=== PATIENT | female | born 1965 | race Caucasian/White ===

== ENCOUNTER 2019-04-19 10:18 | Inpatient (IN) | payer MEDICAID ==
[~2019-04-19] VITALS: Ht 162.6 cm; Wt 47.7 kg
[2019-04-19 12:50] LABS: BASOPHILS 0.2 % (0-2); EOSINOPHILS 0.1 % (0-7); HEMATOCRIT 41.2 % (36.0-48.0); HEMOGLOBIN 13.4 g/dL (12-16); IMMATURE GRANULOCYTES 0.2 % (0-5); LYMPHOCYTES 6.7 % (15-50); MCH 27.5 pg (26.0-34.0); MCHC 32.5 g/dL (31.0-37.0); MCV 84.4 fL (80.0-100.0); MEAN PLATELET VOLUME 9.2 fL (7.4-10.4); MONOCYTES 4.3 % (2-11); NEUTROPHILS 88.5 % (40-80); PLATELET COUNT 193 10x3/uL (130-400); RBC 4.88 10x6/uL (4.00-5.40); RDW 15.1 % (11.5-14.5); WBC 9.1 10x3/uL (4.8-10.8)
--- NOTE | 2019-04-19 12:54 | NUR ---
PT AWARE SHE IS BEING ADMITTED TO [facility], AWAITING BED ASSIGNMENT. PT AWARE OF NPO STATUS. DENIES NEEDS, CALL LIGHT IN REACH, WILL CONTINUE TO MONITOR.
[2019-04-19 13:02] LABS: APTT 27.2 SECONDS (22.8-39.4); PROTIME 12.7 SECONDS (11.6-15.0)
[2019-04-19 13:06] LABS: ALBUMIN 3.8 g/dL (3.4-5.0); ALKALINE PHOSPHATASE 93 U/L (46-116); ALT (SGPT) 19 U/L (10-68); BILIRUBIN - TOTAL 0.41 mg/dL (0.2-1.3); CALC OSMOLALITY 275 mosm/kg (275-300); CALCIUM 8.2 mg/dL (8.5-10.1); CARBON DIOXIDE 24.6 mmol/L (21.0-32.0); CHLORIDE - SERUM 103 mmol/L (98-107); CREATININE - SERUM 0.8 mg/dL (0.6-1.3); GLUCOSE 104 mg/dL (74-106); POTASSIUM - SERUM 3.9 mmol/L (3.5-5.1); PROTEIN - SERUM 7.2 g/dL (6.4-8.2); SODIUM 139 mmol/L (136-145); UREA NITROGEN 6 mg/dL (7-18); eGFR NON AFRICAN AMERICAN 78 mL/min (90-120)
--- NOTE | 2019-04-19 14:01 | NUR ---
PT OFFERED PRN PAIN MEDICATION AND DECLINED AT THIS TIME.
[2019-04-19 14:19] VITALS: BP 134/80; Ht 162.6 cm; Wt 47.7 kg
--- NOTE | 2019-04-19 14:29 | NUR ---
PATIENT ADMITTED TO ROOM 2228. ADMISSION ASSESSMENT COMPLETED PER PROTOCOL. PLEXI BOOTS PLACED ON PATIENT PER ORDER. WILL OBTAIN CONSENTS FOR PROCEDURE.
--- NOTE | 2019-04-19 15:01 | NUR ---
CONSENTS SIGNED FOR PROCEDURE. PREOP MEDICATIONS GIVEN. ANCEF NOT GIVEN D/T NOT ON FLOOR. STAFF WHO CAME TO PHARMACIST IN CHARGE PATIENT NOTIFIED MED NOT GIVEN.
--- NOTE | 2019-04-19 15:14 | MORECARE ---
CASE MANAGEMENT DISCHARGE SUMMARY PATIENT: ALESHIA SCOTT UNIT: [id number] ADM DATE: 04/19/19 AGE: 54 : 61 SEX: F ROOM/BED: D.2228 AUTHOR: HO BURDICK PHYSICIAN: REFERRING PHYSICIAN: LESLIE MONTE MD DATE OF SERVICE: 04/19/19 Discharge Plan Patient Name: ALESHIA SCOTT [facility] [facility] 1965 Planned Disposition: Home Anticipated Discharge Date: 04/21/19 Discharge Date: Expected LOS: 2 Initial Reviewer: [email or web address] Initial Review Date: 04/19/2019 Generated: 04/19/19 4:13 pm DCPIA - Discharge Planning Initial Assessment Updated by [id number]: Lorna Kim on 04/19/19 3:13 pm * Is the patient Alert and Oriented? Yes * How many steps to enter\exit or inside your home? * PCP No PCP * Pharmacy [facility] * Preadmission Environment Home Alone * ADLs Independent * Equipment Crutch Rolling Walker * List name and contact numbers for known caregivers / representatives who currently or will assist patient after discharge: Juan Boyle - co-worker - [phone] * Verbal permission to speak to the caregivers and representatives has been obtained from the patient. Yes * Community resources currently utilized None * Additional services required to return to the preadmission environment? No * Can the patient safely return to the preadmission environment? Yes * Has this patient been hospitalized within the prior 30 days at any hospital? No Patient Name: ALESHIA SCOTT Page [id number] at 1514 All edits/amendments must be made on the electronic document DICTATION DATE: 04/19/191512 MATERIAL MOVERS: MARIE 04/19/191512 RPT#: [id number] DC DATE: STATUS: ADM IN [facility] [address] [place] [address] END OF REPORT
--- NOTE | 2019-04-19 15:24 | MORECARE ---
CASE MANAGEMENT DISCHARGE SUMMARY PATIENT: ALESHIA SCOTT UNIT: [id number] ADM DATE: 04/19/19 AGE: 54 : 61 SEX: F ROOM/BED: D.2228 AUTHOR: HEAVENLY,DOC PHYSICIAN: REFERRING PHYSICIAN: LESLIE MONTE MD DATE OF SERVICE: 04/19/19 Discharge Plan Patient Name: ALESHIA SCOTT Facility: [facility]:[place] : 1965 Planned Disposition: Home Anticipated Discharge Date: 04/21/19 Discharge Date: Expected LOS: 2 Initial Reviewer: [email or web address] Initial Review Date: 04/19/2019 Generated: 04/19/19 4:24 pm DCP- Discharge Planning Updated by [email or web address]: Lorna Kim on 04/19/19 2:[address] DC PLAN: Return home alone (if able) ANTICIPATED DC NEEDS: Denied dc needs at time of assessment. CM met with patient to complete initial dc planning assessment. CM educated patient on the CM role and verbal consent given by patient to complete assessment. CM verified patient's address, phone number, and emergency contact phone numbers. Patient lives at with. At discharge patient plans to return home alone and feels this is a safe discharge. CM discussed availability of home health, rehab services, and medical equipment. Patient denied known discharge needs at this time. Patient reports Juan will transport her home at time of discharge. Patient with a hip fracture and will have surgery so she may require assistance at discharge. She reports she does not have health insurance at this time. CM called [employer], left a message for Romina requesting patient be screened for medicaid assistance. CM will continue to follow and will assist as needed with dc plans/needs. Lorna Kim RN, [facility] DCPIA - Discharge Planning Initial Assessment Updated by [email or web address]: Lorna Kim on 04/19/19 3:13 pm * Is the patient Alert and Oriented? Yes * How many steps to enter\exit or inside your home? * PCP No PCP * [facility] * Preadmission Environment Home Alone * ADLs Independent * Equipment Crutch Rolling Walker * List name and contact numbers for known caregivers / representatives who currently or will assist patient after discharge: Juan Montana - co-worker - [phone] * Verbal permission to speak to the caregivers and representatives has been obtained from the patient. Yes * Community resources currently utilized None * Additional services required to return to the preadmission environment? No * Can the patient safely return to the preadmission environment? Yes * Has this patient been hospitalized within the prior 30 days at any hospital? No Last DP export: 04/19/19 2:14 p Patient Name: ALESHIA SCOTT Page [id number] at 1524 All edits/amendments must be made on the electronic document DICTATION DATE: 04/19/191523 SUPERVISOR REINFORCED STEEL PLACING: MARIE 04/19/191523 RPT#: [id number] RI DATE: STATUS: ADM IN [facility] [address] [place] [address] END OF REPORT
[2019-04-19 17:35] VITALS: BP 145/84
[2019-04-19 17:47] VITALS: BP 145/84
[2019-04-19 18:05] VITALS: BP 153/98
[2019-04-19 18:12] VITALS: BP 131/79
--- NOTE | 2019-04-19 18:31 | NUR ---
RESTING IN BED. POST OP VITALS REMAIN STABLE. DENIES NEEDS. BED LOW. FALL PRECAUTIONS IN PLACE. CALL FLORES AND PERSONAL ITEMS IN REACH. WILL CONTINUE TO MONITOR.
--- NOTE | 2019-04-19 20:00 | NUR ---
ASSESSMENT PER FLOWSHEET. DRSG TO RT FEMUR INCISION C/D/I. IV PATENT RT ARM OF NS AT 125CC'S/HR. KASHIF MAT ON YELLOW SAFETY MEASURES IN USE.
[2019-04-19 20:43] VITALS: BP 118/75
--- NOTE | 2019-04-19 21:00 | NUR ---
UP TO BR WITH HELP AND USE OF WALKER VOIDS WELL.
--- NOTE | 2019-04-19 22:00 | NUR ---
MEDS PER MAR.
[2019-04-20 01:15] VITALS: BP 120/83
--- NOTE | 2019-04-20 01:25 | NUR ---
UP TO BR WITH HELP AND USE OF WALKER VOIDS WELL. ASSISTED BACK TO BED.REQUESTING PAIN MED. NORCO 7.5MG TAB ONE PO GIVEN FOR PAIN CONTROL.
--- NOTE | 2019-04-20 03:10 | NUR ---
EYES CLOSED RESPIRATIONS WITH EASE AND UNLABORED.
[2019-04-20 05:02] VITALS: BP 108/67
[2019-04-20 06:00] LABS: BASOPHILS 0.2 % (0-2); EOSINOPHILS 0 % (0-7); HEMATOCRIT 34.9 % (36.0-48.0); HEMOGLOBIN 11.1 g/dL (12-16); IMMATURE GRANULOCYTES 0.2 % (0-5); LYMPHOCYTES 30.4 % (15-50); MCH 26.9 pg (26.0-34.0); MCHC 31.8 g/dL (31.0-37.0); MCV 84.5 fL (80.0-100.0); MEAN PLATELET VOLUME 9.6 fL (7.4-10.4); MONOCYTES 8.1 % (2-11); NEUTROPHILS 61.1 % (40-80); PLATELET COUNT 186 10x3/uL (130-400); RBC 4.13 10x6/uL (4.00-5.40); RDW 15.5 % (11.5-14.5)
[2019-04-20 06:40] LABS: ALKALINE PHOSPHATASE 69 U/L (46-116); BILIRUBIN - TOTAL 0.29 mg/dL (0.2-1.3); CALCIUM 7.1 mg/dL (8.5-10.1); CARBON DIOXIDE 25.5 mmol/L (21.0-32.0); CHLORIDE - SERUM 110 mmol/L (98-107); CREATININE - SERUM 0.7 mg/dL (0.6-1.3); GLUCOSE 95 mg/dL (74-106); MAGNESIUM - SERUM 2.1 mg/dL (1.8-2.4); PHOSPHOROUS 3.5 mg/dL (2.5-4.9); POTASSIUM - SERUM 4.1 mmol/L (3.5-5.1); PROTEIN - SERUM 5.4 g/dL (6.4-8.2); SODIUM 143 mmol/L (136-145); eGFR NON AFRICAN AMERICAN > 90 mL/min (90-120)
[2019-04-20 06:41] LABS: ALBUMIN 2.7 g/dL (3.4-5.0); ALT (SGPT) 13 U/L (10-68); CALC OSMOLALITY 281 mosm/kg (275-300); UREA NITROGEN 4 mg/dL (7-18)
[2019-04-20 06:48] LABS: WBC 4.7 10x3/uL (4.8-10.8)
[2019-04-20 08:17] VITALS: BP 126/73
[2019-04-20 11:33] VITALS: BP 130/78
--- NOTE | 2019-04-20 12:42 | NUR ---
PT RESTING IN BED. NO SIGNS OF DISTRESS. IV TO RIGHT FORARM PATENT NO REDNESS OR TENDERNESS. ON 2L NC. DENIES ANY FURHTER NEED AT THIS TIME. CALL LIGHT IN REACH. BED LOW POSITION. NO FAMILY AT BEDSIDE AT THIS TIME.
--- NOTE | 2019-04-20 15:10 | NUR ---
LYING IN BED,WITHOUT DISTRESS.CALL LIGHT IN REACH
[2019-04-20 16:01] VITALS: BP 125/80
--- NOTE | 2019-04-20 20:00 | NUR ---
ASSESSMENT PER FLOWSHEET. DRSG TO RT HIP C/D/I. SCD'S ON. SR UP X2 CALL LIGHT WITHIN REACH.IV PATENT RT FOREARM OF NS AT 50CC'S/HR. PT INDEPENDENT WITH WALKER GOES TO BR AND VOIDS WELL BSC WITHOUT PAIL IS IN THE BATHROOM OVER COMMODE.
[2019-04-20 20:34] VITALS: BP 132/84
--- NOTE | 2019-04-20 21:15 | NUR ---
C/O PAIN INCISIONAL AREA RATES LEVEL AT 5. NORCO 7.5 MG PO GIVEN FOR PAIN CONTROL.
--- NOTE | 2019-04-21 | NUR ---
EYES CLOSED RESPIRATIONS WITH EASE AND UNLABORED.
[2019-04-21 00:41] VITALS: BP 130/80
--- NOTE | 2019-04-21 04:56 | NUR ---
EYES CLOSED RESPIRATIONS WITH EASE DENIES NEEDS.
[2019-04-21 05:12] VITALS: BP 126/84
[2019-04-21 06:15] LABS: BASOPHILS 0.2 % (0-2); EOSINOPHILS 0.2 % (0-7); HEMOGLOBIN 11.2 g/dL (12-16); LYMPHOCYTES 36.5 % (15-50); MCH 26.9 pg (26.0-34.0); MCV 83.9 fL (80.0-100.0); MEAN PLATELET VOLUME 9.6 fL (7.4-10.4); MONOCYTES 9.1 % (2-11); PLATELET COUNT 164 10x3/uL (130-400); RBC 4.17 10x6/uL (4.00-5.40); RDW 15.6 % (11.5-14.5); WBC 4.1 10x3/uL (4.8-10.8)
[2019-04-21 06:24] LABS: CALCIUM 7.4 mg/dL (8.5-10.1); CHLORIDE - SERUM 108 mmol/L (98-107); GLUCOSE 98 mg/dL (74-106); MAGNESIUM - SERUM 1.9 mg/dL (1.8-2.4); PHOSPHOROUS 2.9 mg/dL (2.5-4.9); POTASSIUM - SERUM 3.9 mmol/L (3.5-5.1); SODIUM 142 mmol/L (136-145); eGFR NON AFRICAN AMERICAN > 90 mL/min (90-120)
[2019-04-21 06:26] LABS: CALC OSMOLALITY 280 mosm/kg (275-300); CREATININE - SERUM 0.5 mg/dL (0.6-1.3); UREA NITROGEN 6 mg/dL (7-18)
[2019-04-21 08:34] VITALS: BP 129/77
--- NOTE | 2019-04-21 09:05 | NUR ---
AWAKE AND ALERT. ORIENTED X3. ATE ALL OF BREAKFAST THIS AM. LUNGS ARE CLEAR BILATERALLY, NO COUGH NOTED. SKIN IS INTACT WITHOUT REDNESS EXCEPT INCISION TO RIGHT HIP WHICH HAS A DRY INTACT DRESSING IN PLACE. SL TO LEFT FOREARM IS PATENT WTIHOUT REDNESS AT INSERTION SITE. DENIES NEEDS.
--- NOTE | 2019-04-21 09:15 | NUR ---
ATE MOST OF BREAKFAST. REQUESTED AND GIVEN ONE HYDROCODONE PO FOR C/O RIGHT HIP PAIN LEVEL 3. WILL MONITOR.
--- NOTE | 2019-04-21 12:30 | NUR ---
LUNCH SERVED IN ROOM. FEEDS SELF. DENIES NEEDS.
[2019-04-21 13:09] VITALS: BP 135/80
--- NOTE | 2019-04-21 14:00 | NUR ---
RESTING QUIETLY IN BED. DENIES NEEDS.
--- NOTE | 2019-04-21 14:21 | MORECARE ---
CASE MANAGEMENT DISCHARGE SUMMARY PATIENT: ALESHIA SCOTT UNIT: [id number] ADM DATE: 04/19/19 AGE: 54 : 61 SEX: F ROOM/BED: D.2228 AUTHOR: HEAVENLY,DOC PHYSICIAN: REFERRING PHYSICIAN: LESLIE MONTE MD DATE OF SERVICE: 04/21/19 Discharge Plan Patient Name: ALESHIA SCOTT Facility: [facility]:[employer] : 1965 Planned Disposition: Home Anticipated Discharge Date: 04/21/19 Discharge Date: Expected LOS: 2 Initial Reviewer: [email or web address] Initial Review Date: 04/19/2019 Generated: 04/21/19 3:20 pm Comments DCP- Discharge Planning Updated by [email or web address]: Lian Garay on 04/21/19 1:[address] DC PLAN: Return home alone (if able) ANTICIPATED DC NEEDS: Denied dc needs at time of assessment. CM met with patient to complete initial dc planning assessment. CM educated patient on the CM role and verbal consent given by patient to complete assessment. CM verified patient's address, phone number, and emergency contact phone numbers. Patient lives at with. At discharge patient plans to return home alone and feels this is a safe discharge. CM discussed availability of home health, rehab services, and medical equipment. Patient denied known discharge needs at this time. Patient reports Juan will transport her home at time of discharge. Patient with a hip fracture and will have surgery so she may require assistance at discharge. She reports she does not have health insurance at this time. CM called [employer], left a message for Romina requesting patient be screened for medicaid assistance. CM will continue to follow and will assist as needed with dc plans/needs. Lorna Kim RN, [facility] DCPIA - Discharge Planning Initial Assessment Updated by [email or web address]: Lorna Kim on 04/19/19 3:13 pm * Is the patient Alert and Oriented? Yes * How many steps to enter\exit or inside your home? * PCP No PCP * [facility] * Preadmission Environment Home Alone * ADLs Independent * Equipment Crutch Rolling Walker * List name and contact numbers for known caregivers / representatives who currently or will assist patient after discharge: Juan Montana - co-worker - [phone] * Verbal permission to speak to the caregivers and representatives has been obtained from the patient. Yes * Community resources currently utilized None * Additional services required to return to the preadmission environment? No * Can the patient safely return to the preadmission environment? Yes * Has this patient been hospitalized within the prior 30 days at any hospital? No Last DP export: 04/19/19 2:24 p Patient Name: ALESHIA SCOTT Page [id number] at 1421 All edits/amendments must be made on the electronic document DICTATION DATE: 04/21/191419 NUTRITION SPECIALIST: MARIE 04/21/191419 RPT#: [id number] DC DATE: STATUS: ADM IN [facility] [address] [place] [address] END OF REPORT
--- NOTE | 2019-04-21 16:00 | NUR ---
RESTING IN BED. DENIES NEEDS.
[2019-04-21 17:11] VITALS: BP 166/82
--- NOTE | 2019-04-21 18:43 | NUR ---
ATE ONLY A SMALL PORTION OF SUPPER TRAY. UP TO BR USING RW MIN ASSIST OF ONE. VOIDED CLEAR YELLOW URINE WITHOUT DIFFICULTY. REPOSITIONED IN BED FOR COMFORT. DENIES NEEDS. NO CHANGES NOTED.
--- NOTE | 2019-04-21 19:33 | NUR ---
UP IN BED, REQUESTING TO HAVE SCDS TAKEN OFF SO SHE CAN AMBULATE TO RR, GRANTED. UP TOE TOUCH BEARING WITH AID OF WALKER, DENIES ANY ACUTE DISTRESS, BUT WOULD LIKE A PAIN MEDICATION WITH HER EVENING MEDS. WILL NOTE ANY CHANGE.
[2019-04-21 21:46] VITALS: BP 128/70
[2019-04-22 01:27] VITALS: BP 134/80
--- NOTE | 2019-04-22 02:34 | NUR ---
I have reviewed this patient and I concur with the Shift Assessment completed by the Licensed Practical Nurse today this shift.
[2019-04-22 05:29] VITALS: BP 148/89
[2019-04-22 05:29] LABS: BASOPHILS 0.3 % (0-2); EOSINOPHILS 0.5 % (0-7); HEMATOCRIT 34.6 % (36.0-48.0); HEMOGLOBIN 11.3 g/dL (12-16); MCH 27.1 pg (26.0-34.0); MCHC 32.7 g/dL (31.0-37.0); MEAN PLATELET VOLUME 9.7 fL (7.4-10.4); MONOCYTES 8.4 % (2-11); NEUTROPHILS 51.8 % (40-80); PLATELET COUNT 164 10x3/uL (130-400); RBC 4.17 10x6/uL (4.00-5.40); RDW 15.3 % (11.5-14.5); WBC 3.7 10x3/uL (4.8-10.8)
[2019-04-22 05:52] LABS: CALC OSMOLALITY 277 mosm/kg (275-300); CALCIUM 7.3 mg/dL (8.5-10.1); CHLORIDE - SERUM 107 mmol/L (98-107); CREATININE - SERUM 0.5 mg/dL (0.6-1.3); GLUCOSE 85 mg/dL (74-106); MAGNESIUM - SERUM 1.8 mg/dL (1.8-2.4); PHOSPHOROUS 3.4 mg/dL (2.5-4.9); POTASSIUM - SERUM 3.8 mmol/L (3.5-5.1); SODIUM 141 mmol/L (136-145); UREA NITROGEN 6 mg/dL (7-18); eGFR NON AFRICAN AMERICAN > 90 mL/min (90-120)
--- NOTE | 2019-04-22 06:29 | NUR ---
RESTED WELL THIS SHIFT, CALLED STAFF FOR ASSISTANCE WITH TRANSFERRING TO TOILET, ONLY NEEDED STAND BY ASSIST, ABLE TO OPERATE WALKER PROPERLY AND SAFELY. DOES HAVE SOME CONCERNS ON WEATHER IN RELATION TO IMPENDING DISCHARGE, OFFERED SUPPORT. WILL NOTE ANY CHANGE.
--- NOTE | 2019-04-22 07:51 | NUR ---
AWAKE AND ALERT. ORIENTED X3. NO C/O AT THIS TIME. LUNGS ARE CLEAR BILATERALLLY, NO COUGH NOTED. SKIN IS INTACT WITHOUT REDNESS EXCEPT INCISION TO RIGHT HIP WHICH HAS A DRY INTACT DRESSING IN PLACE. IV TO RIGHT FOREARM IS PATENT WTIHOUT REDNESS AT INSERTION SITE. DENIES NEEDS. NO C/O PAIN AT THIS TIME. ANXIOUS TO GO HOME.
[2019-04-22] MEDS ORDERED: NORCO-7.5 PO (07:54)
[2019-04-22 08:18] VITALS: BP 142/83
--- NOTE | 2019-04-22 11:05 | NUR ---
REFUSED [employer] AGAIN THIS AM EVEN AFTER EDUCATED ON RATIONAL FOR SAME.
[2019-04-22] MEDS ORDERED: MIRALAX17 GM PO (12:11)
[2019-04-22 12:21] VITALS: BP 146/72
--- NOTE | 2019-04-22 13:09 | MORECARE ---
CASE MANAGEMENT DISCHARGE SUMMARY PATIENT: ALESHIA SCOTT UNIT: [id number] ADM DATE: 04/19/19 AGE: 54 : 61 SEX: F ROOM/BED: D.2228 AUTHOR: HO BURDICK PHYSICIAN: REFERRING PHYSICIAN: LESLIE MONTE MD DATE OF SERVICE: 04/22/19 Discharge Plan Patient Name: ALESHIA SCOTT Facility: [facility]:[place] : 1965 Planned Disposition: Home Anticipated Discharge Date: 04/21/19 Discharge Date: Expected LOS: 2 Initial Reviewer: [email or web address] Initial Review Date: 04/19/2019 Generated: 04/22/19 2:09 pm Comments DCP- Discharge Planning Updated by [email or web address]: Lian Tanisha on 04/22/19 12:[address] Discharge orders received. I spoke with the patient and the daughter. I explained that she does not have any insurance, so she would need to self pay for her walker and bedside commode if needed. I did refer to [employer] or [employer]. Daughter states she will be able to purchase the DME needed. Patient states she already has a walker from a family member. No other needs. Daughter will be staying with the patient. Home today. DCP- Discharge Planning Updated by [email or web address]: Lian Beltredoc on 04/21/19 1:[address] DC PLAN: Return home alone (if able) ANTICIPATED DC NEEDS: Denied dc needs at time of assessment. CM met with patient to complete initial dc planning assessment. CM educated patient on the CM role and verbal consent given by patient to complete assessment. CM verified patient's address, phone number, and emergency contact phone numbers. Patient lives at with. At discharge patient plans to return home alone and feels this is a safe discharge. CM discussed availability of home health, rehab services, and medical equipment. Patient denied known discharge needs at this time. Patient reports Juan will transport her home at time of discharge. Patient with a hip fracture and will have surgery so she may require assistance at discharge. She reports she does not have health insurance at this time. CM called [employer], left a message for Romina requesting patient be screened for medicaid assistance. CM will continue to follow and will assist as needed with dc plans/needs. Lorna Kim RN, [facility] DCPIA - Discharge Planning Initial Assessment Updated by [email or web address]: Lorna Kim on 04/19/19 3:13 pm * Is the patient Alert and Oriented? Yes * How many steps to enter\exit or inside your home? * PCP No PCP * Pharmacy [facility] * Preadmission Environment Home Alone * ADLs Independent * Equipment Crutch Rolling Walker * List name and contact numbers for known caregivers / representatives who currently or will assist patient after discharge: Juan Boyle - co-worker - [phone] * Verbal permission to speak to the caregivers and representatives has been obtained from the patient. Yes * Community resources currently utilized None * Additional services required to return to the preadmission environment? No * Can the patient safely return to the preadmission environment? Yes * Has this patient been hospitalized within the prior 30 days at any hospital? No Last DP export: 04/21/19 1:21 Patient Name: ALESHIA SCOTT Page 27711 at 1309 All edits/amendments must be made on the electronic document DICTATION DATE: 04/22/19 1309 AEROSPACE TECHNICIAN: MARIE 04/22/19 1309 RPT#: [id number] DC DATE: STATUS: ADM IN [facility] [address] [place] [address] END OF REPORT
--- NOTE | 2019-04-22 14:35 | NUR ---
DISCHARGED TO HOME AMBULATORY WITH FAMILY. DISCHARGE INSTRUCTIONS GIVEN BOTH VERBALLY AND WRITTEN. ALL QUESTIONS ANSWERED. PATIENT VERBALIZED UNDERSTANDING OF SAME. IV TO RIGHT FOREARM D/C WITH CATHETER INTACT. ALL BELONGINGS WITH PATIENT. DRESSING CHANGED TO RIGHT HIP PRIOR TO D/C HOME. EXTRA DRESSING SENT WITH PATIENT.
--- NOTE | 2019-04-22 16:38 | MORECARE ---
CASE MANAGEMENT DISCHARGE SUMMARY PATIENT: ALESHIA SCOTT UNIT: [id number] ADM DATE: 04/19/19 AGE: 54 : 61 SEX: F ROOM/BED: D.2228 AUTHOR: HEAVENLYDOC PHYSICIAN: REFERRING PHYSICIAN: LESLIE MONTE MD DATE OF SERVICE: 04/22/19 Discharge Plan Patient Name: ALESHIA SCOTT Facility: [facility]:[place] : 1965 Planned Disposition: Home Anticipated Discharge Date: 04/21/19 Discharge Date: 04/22/2019 Expected LOS: 2 Initial Reviewer: [email or web address] Initial Review Date: 04/19/2019 Generated: 04/22/19 5:38 pm Comments DCP- Discharge Planning Updated by [email or web address]: Lian Tanisha on 04/22/19 12:[address] Discharge orders received. I spoke with the patient and the daughter. I explained that she does not have any insurance, so she would need to self pay for her walker and bedside commode if needed. I did refer to [employer] or [employer]. Daughter states she will be able to purchase the DME needed. Patient states she already has a walker from a family member. No other needs. Daughter will be staying with the patient. Home today. DCP- Discharge Planning Updated by [email or web address]: Lian Beltredoc on 04/21/19 1:[address] DC PLAN: Return home alone (if able) ANTICIPATED DC NEEDS: Denied dc needs at time of assessment. CM met with patient to complete initial dc planning assessment. CM educated patient on the CM role and verbal consent given by patient to complete assessment. CM verified patient's address, phone number, and emergency contact phone numbers. Patient lives at with. At discharge patient plans to return home alone and feels this is a safe discharge. CM discussed availability of home health, rehab services, and medical equipment. Patient denied known discharge needs at this time. Patient reports Juan will transport her home at time of discharge. Patient with a hip fracture and will have surgery so she may require assistance at discharge. She reports she does not have health insurance at this time. CM called [employer], left a message for Romina requesting patient be screened for medicaid assistance. CM will continue to follow and will assist as needed with dc plans/needs. Lorna Kim RN, [facility] DCPIA - Discharge Planning Initial Assessment Updated by [email or web address]: Lorna Kim on 04/19/19 3:13 pm * Is the patient Alert and Oriented? Yes * How many steps to enter\exit or inside your home? * PCP No PCP * Pharmacy [facility] * Preadmission Environment Home Alone * ADLs Independent * Equipment Crutch Rolling Walker * List name and contact numbers for known caregivers / representatives who currently or will assist patient after discharge: Juan Boyle - co-worker - [phone] * Verbal permission to speak to the caregivers and representatives has been obtained from the patient. Yes * Community resources currently utilized None * Additional services required to return to the preadmission environment? No * Can the patient safely return to the preadmission environment? Yes * Has this patient been hospitalized within the prior 30 days at any hospital? No Last DP export: 04/22/19 12:09 Patient Name: ALESHIA SCOTT Page [id number] at 1638 All edits/amendments must be made on the electronic document DICTATION DATE: 04/22/191637 MEDICAL CODER: MARIE 04/22/191637 RPT#: [id number] DC DATE:04/22/19 STATUS: DIS IN [facility] [address] [place] [address] END OF REPORT
== END 2019-04-22 14:37 | disposition home or self-care (01) | DRG 482 ==
LOC: D.ER 10:18 → D.MS 13:25
PROVIDERS: Family Medicine; Orthopaedic Surgery; ADMIT Internal Medicine Nephrology; ATTEND Internal Medicine Nephrology
PROC: 0QS634Z Reposition Right Upper Femur with Internal Fixation Device, Percutaneous Approach (ICD-10-PCS; principal; 2019-04-19 15:54)
DX: S72.001A Fracture of unspecified part of neck of right femur, initial encounter for closed fracture (principal); W10.1XXA Fall (on)(from) sidewalk curb, initial encounter